=== PATIENT | female | born 1955 | race Caucasian/White ===

== ENCOUNTER → 2016-07-05 | Day surgery (SDC) | payer OTHER ==
--- NOTE | ~2016-07-05 | MY22 ---
[facility] A Service of [facility] RADIOLOGY TEXT RESULTS PATIENT: JEREMY LARSON LOCATION: [facility] : 59 UNIT #: [id number] AGE: [address]: FAVIAN JOHNSON APR SEX: F ORDER DR: [id number] [facility] [address] [place], [place] [address] [id number] O MR#: [id number] Acc #: [id number] NAME: JEREMY LARSON. : 1955 SEX: F STUDY DATE/TIME: 07/05/2016 13:15 UNIT: [facility] ROOM: STUDY DESCRIPTION: MY BX Breast 1st Lesion Stereo Attending Physician: Favian Johnson Aprn Referring Physician: Favian Johnson Aprn Ordering Physician: Favian Johnson Aprn Primary Care Physician: Favian Johnson Aprn MEDICAL IMAGING REPORT This report is preliminary unless electronic signature is present REVISED REPORT SEE ADDENDUM EXAM Stereotactic biopsy left breast, specimen mammogram and post-clip mammogram. INDICATIONS Left breast calcifications. PROCEDURE Informed consent was obtained. Patient is on aspirin therapy and took an aspirin this morning. She was taking it for coronary artery stents. I discussed the increased risk of bleeding with her and felt it was reasonable to proceed. She was placed in the supine position in the stereotactic table and a superior approach was utilized. After sterile preparation and local anesthesia, I made a skin ella and introduced the needle to the predetermined coordinates. Pre- and post-fire imaging was obtained. [id number] sampling was then performed. The specimen image showed numerous calcifications had been removed. Patient tolerated the procedure well. A marker clip was placed at the biopsy site and hemostasis was obtained. Postprocedure mammogram showed the clip in good position. IMPRESSION Successful stereotactic biopsy, with placement of a marker clip at the biopsy site. Dictated by... Lukas Pham M.D. [facility] A Service of [facility] RADIOLOGY TEXT RESULTS PATIENT: JEREMY LARSON LOCATION: [facility] : 59 UNIT #: [id number] AGE: [address]: FAVIAN JOHNSON APR SEX: F ORDER DR: THIS IS AN ELECTRONICALLY VERIFIED REPORT Lukas Pham M.D. 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 I think the findings are concordant. There are multiple calcifications present so I would recommend a six month follow-up. Dictated by... Lukas Pham M.D. THIS IS AN ELECTRONICALLY VERIFIED REPORT Lukas Pham M.D. at 07/16/2016 1:53 PM SARAH/beth TD: 07/15/2016 01:53 JOB #: [id number] MEDICAL IMAGING REPORT Page 1 of 1 COPY
== END | disposition home or self-care (01) ==
LOC: CWCC 06-30 09:00
DX: R92.8 Other abnormal and inconclusive findings on diagnostic imaging of breast (principal)
CPT/HCPCS: 88305; G0204